=== PATIENT | female | born 1980 | race Caucasian/White ===

== ENCOUNTER 2020-06-29 15:26 | Outpatient (CLI) | payer OTHER, SELFPAY ==
--- NOTE | ~2020-06-29 | US_ITS ---
EXAMINATION: US OB <=14 wk fetus w TV DATE: 06/29/2020 16:07 INDICATION: Uncertain dating of first trimester . TECHNIQUE: Real-time pelvic ultrasound utilizing both a transvaginal and transabdominal probe was pe rformed. The interpreting radiologist was not present for the study. COMPARISON: None. FINDINGS: The uterus measures 9.8 x 6.3 x 8.0 cm. There is an intrauterine gestational sac. A yolk sac and fet al pole are identified. The crown rump length measures 1.7 cm, which correlates with an estimated ges tational age of 8 weeks and 0 days. heart motion is identified measuring 157 beats per minute ( bpm) by M-mode Doppler. The right ovary measures 2.0 x 2.2 x 2.2 cm. The left ovary measures 3.6 x 2.1 x 2.3 cm. There is no free fluid in the pelvis. IMPRESSION: 1. Single living fetus with heart of 157 bpm. 2. Gestational age by ultrasound of 8 weeks 0 day(s) +/- 5 day(s) with ultrasound estimated date of delivery (DICK) of 02/08/2021. Reviewed, dictated and finalized at location A. CELL OPERATOR IMPRESSION: 1. Single living fetus with heart of 157 bpm. 2. Gestational age by ultrasound of 8 weeks 0 day(s) +/- 5 day(s) with ultraso und estimated date of delivery (DICK) of 02/08/2021.
== END 2020-06-29 15:27 | disposition home or self-care (01) ==
PROVIDERS: Visit Provider Obstetrics & Gynecology Gynecology
DX: Z36.87 Encounter for antenatal screening for uncertain dates (principal); Z3A.08 8 weeks gestation of pregnancy
CPT/HCPCS: 76801; 76817

== ENCOUNTER 2020-09-09 16:20 | Outpatient (CLI) | payer OTHER, SELFPAY ==
--- NOTE | ~2020-09-09 | US_ITS ---
EXAMINATION: US OB /maternal detail DATE: 09/09/2020 17:19 INDICATION: anatomic survey. TECHNIQUE: Real-time ultrasound of the pelvis was performed. COMPARISON: Ultrasound 06/29/2020 FINDINGS: There is a single living fetus in vertex presentation. The placenta is posterior, 5.4 cm from the ce rvix. heart rate is 161 beats per minute (bpm). The amniotic fluid volume is subjectively lisa l. The following biometric data were obtained: Biparietal diameter (BPD): 4.2 cm; head circumference (HC): 16.6 cm; abdominal circumference (AC): 13 .8 cm; femur length (FL): 2.9 cm. These measurements are concordant. Estimated weight is 275 g +/- 41 g, which correlates with 90th percentile when 02/08/21 is used as estimated date of delivery. As single measurements, these parameters are each equal to the following estimated gestational ages: BPD: 18 weeks 4 days. HC: 19 weeks 2 days. AC: 19 weeks 1 days. FL: 19 weeks 0 days. estimated gestational age based solely on measurements from this exam is 19 weeks 0 days +/- 1 weeks 2 days. The cerebral ventricles, cerebellum, cisterna magna, nuchal fold, and visualized portions of the spin e are normal. The heart is suboptimally visualized, but is normal. The diaphragm, stomach, kidneys, a nd bladder are normal. There are two umbilical arteries to yield a 3-vessel cord. The cord insertion is normal. IMPRESSION: 1. Single living fetus in vertex presentation. 2. Estimated weight is 275 g +/- 41 g, which correlates with 90th percentile when 02/08/21 is u sed as estimated date of delivery. This date was set by ultrasound on 06/29/2020. 3. Normal anatomic survey. Reviewed, dictated and finalized at location A. IMPRESSION: 1. Single living fetus in vertex presentation. 2. Estimated weight is 275 g +/- 41 g, which correlates with 90th percen tile when 02/08/21 is used as estimated date of delivery. This date was set by theresa de oliveira on 06/29/2020. 3. Normal anatomic survey.
== END 2020-09-09 16:21 | disposition home or self-care (01) ==
PROVIDERS: Visit Provider Obstetrics & Gynecology Gynecology
DX: Z36.9 Encounter for antenatal screening, unspecified (principal); Z3A.19 19 weeks gestation of pregnancy
CPT/HCPCS: 76805

== ENCOUNTER 2021-02-02 16:59 | Inpatient (IN) | payer OTHER, SELFPAY ==
[2021-02-02] VITALS (16 sets, daily range): BP systolic 114–129; BP diastolic 69–94; PULSE 79–103; RESP 18; TEMP 36.8–36.9; BMI 44.9
--- NOTE | 2021-02-02 18:34 | LDADM ---
This patient, Hilary Griffin, was admitted to Labor/Delivery/Recovery 109 on 02/02/21 at 16:59. Plans for labor, pain management and were discussed with patient. Patient/family oriented to hospital policies and general routines including ID bracelet, bed and alarms, visiting hours, pain management, procedures, bathroom and other care routines, personal items, smoking policy, room service/diet and guest tray routines, infant security routines, and visiting hours. Patient/Family are encouraged to report perceived risks to care and to ask questions if they do not understand what they are told or what they should do. See OBIX for further documentation.
[2021-02-02 18:50] LABS: Basophils Percent Auto 0.3 % (0.2-1.2); Eosinophils Absolute Auto 0.1 K/mm3 (0-0.3); Eosinophils Percent Auto 0.4 % (0-4.4); Hemoglobin 11.1 g/dL (12.0-15.0); Immature Granulocyte Absolute 0.03 K/mm3 (0.00-0.031); Immature Granulocyte Percent A 0.3 % (0-0.5); Lymphocytes Absolute Auto 1.93 K/mm3 (0.9-3.2); Lymphocytes Percent Auto 16.8 % (18.3-44.2); Mean Corpuscular HGB Conc 31.7 g/dl (32-36); Mean Corpuscular Hemoglobin 27.5 pg (26-34); Mean Corpuscular Volume 86.8 fl (80-100); Mean Platelet Volume 10.1 fl (7.4-10.4); Monocytes Percent Auto 8.2 % (2.6-8.5); Neutrophils Absolute Auto 8.5 K/mm3 (1.3-6.7); Platelet Count Result 305 k/mm3 (150-375); Red Blood Count 4.03 M/mm3 (4.2-5.4); Red Cell Distribution Width 14.3 % (11.5-14.5); White Blood Count 11.5 K/mm3 (4.5-10.0)
[2021-02-02] MEDS: DINOPROSTONE 10 MG VAG INSERT VAGINAL (18:59)
[2021-02-03] VITALS (41 sets, daily range): BP systolic 113–146; BP diastolic 56–100; PULSE 70–112; RESP 18; TEMP 36.4–37.1; O2SAT 97–98
--- NOTE | 2021-02-03 06:11 | WPDANESEPP ---
Anes - Eval Pre Procedure Procedure: labor epidural Date/Time: 02/03/21 06:11 Surgeon: alonso Pre Op Diagnosis: iol Patient Data Age: 40 Gender: F Height: 1.68 m Weight: 126.4 kg Last Vital Signs Temp 37.0 C 02/03/21 03:02 Pulse 71 02/03/21 03:02 Resp 18 02/03/21 03:02 BP 133/74 02/03/21 03:02 Allergies Allergy/AdvReac Type Severity Reaction Status Date / Time No Known Allergies Allergy Unknown Verified 05/26/09 06:39 Home Medications Medication Instructions Recorded Confirmed Type aspirin 81 mg PO DAILY 01/10/21 02/02/21 History cetirizine [Zyrtec] 10 mg PO DAILY 01/10/21 02/02/21 History vit no.480-qcgm-ocxvl 1 tablet PO DAILY 01/10/21 02/02/21 History [Classic ] Laboratory Tests 02/02/21 02/02/21 02/02/21 18:40 18:40 18:40 WBC 11.5 K/mm3 H K/mm3 (4.5-10.0) RBC 4.03 M/mm3 L M/mm3 (4.2-5.4) Hgb 11.1 g/dL L g/dL (12.0-15.0) Hct 35.0 % L % (37.0-47.0) MCV 86.8 fl fl (80-100) MCH 27.5 pg pg (26-34) MCHC 31.7 g/dl L g/dl (32-36) RDW 14.3 % % (11.5-14.5) Plt Count 305 k/mm3 k/mm3 (150-375) MPV 10.1 fl fl (7.4-10.4) Immature Gran % (Auto) 0.3 % % (0-0.5) Neut % (Auto) 74.0 % H % (45.5-73.1) Lymph % (Auto) 16.8 % L % (18.3-44.2) [place] % (Auto) 8.2 % % (2.6-8.5) Eos % (Auto) 0.4 % % (0-4.4) Baso % (Auto) 0.3 % % (0.2-1.2) Lymph # (Auto) 1.93 K/mm3 K/mm3 (0.9-3.2) [place] # (Auto) 1.0 K/mm3 H K/mm3 (0.1-0.6) Eos # (Auto) 0.1 K/mm3 K/mm3 (0-0.3) Baso # (Auto) 0.0 K/mm3 K/mm3 (0.0-0.1) Abs Immat Gran (auto) 0.03 K/mm3 K/mm3 (0.00-0.031) Absolute Neuts (auto) 8.5 K/mm3 H K/mm3 (1.3-6.7) Absolute Nucleated RBC 0.0 K/mm3 K/mm3 (0.0-0.012) Nucleated RBC % 0.0 % % (0.0-0.2) RPR Pending Blood Type A Positive Antibody Screen Negative Patient hx anesthesia problems: none Family hx anesthesia problems: none [facility] Family History Family History (Updated 01/10/21 @ 15:51 by Tamar Griffin RN) Mother Hypertension Social History Social History Smoking packs per day: 1 Smoking cigarettes per day: 20.0 Years smoked: 10 Smoking pack-years: 10.00 Smoking status: Former smoker Tobacco type: cigarettes Second hand tobacco smoke exposure: Yes Substance use: never Gender identity (if verbalized by the patient): Female Spiritual care concerns: No Exam Day of Procedure 02/03/21 06:11
--- NOTE | 2021-02-03 07:51 | WPDOBADMIT ---
Obstetrics - Admit Note Admission Note: record reviewed. No pertinent additions to the history and/or any subsequent changes in the physical findings that are not consistent with the expected course of the were found. Additions to the history and/or subsequent changes in the physical findings follow. Here for MIL at 39 wks. Cervadil last pm now cervix 1-250/-2 AROM with clear Fluid. Start pitocin. FHTs reactive
[2021-02-03] MEDS: OXYTOCIN 30 UNITS/NS 500 ML 30 UNITS/500 ML BAG IV CONT (08:58)
[2021-02-03 09:20] LABS: Rapid Plasma Reagin Non-Reactive (NonReactive)
[2021-02-03] MEDS: fentaNYL CITRATE INJ (*CRX) 100 MCG/2 ML VIAL IV PUSH (14:15)
--- NOTE | 2021-02-03 15:23 | PM.OBPRVD ---
OB - Delivery Note Procedure Delivery date: 02/03/21 Procedure: events: Labor Induction Intrapartal events: None Induction method: AROM, per pitocin protocol and per cervidil protocol Delivery monitor: external FHT and external uterine Route of delivery: Laceration Description: Perineal - 1st Degree Delivery repair: vicryl (3-0 vicryl) Specimen: No Quantitative Blood Loss (ml): 75 Anesthesia type: None Disposition: floor Baby Date of : 02/03/21 Weeks of gestation at delivery: 39 gender: Female Weight (pounds): 8 Weight (ounces): 7 presentation: vertex position: Right Occiput Anterior Placenta delivery description: Spontaneous cord vessel description: 3 Vessels score one minute: 8 score five minutes: 9
--- NOTE | 2021-02-03 15:24 | P.DS_ITS ---
DS: Admitting Diagnosis Admitting Diagnosis IUP 39 wk DS: Discharge Diagnosis Discharge Diagnosis (1) 39 weeks gestation of : Code(s): Z3A.39 - 39 weeks gestation of Status: Acute (2) (normal spontaneous vaginal delivery): Code(s): O80 - Encounter for full-term uncomplicated delivery Status: Acute OB - DS: Summary OB Procedures : Ultrasound OB Procedures Intrapartum: Spontaneous Vag Delivery OB Procedures: : None Peripartum Data Delivery Method: Natural Vaginal Laceration Description: Perineal - 1st Degree complications: none Status at Discharge Functional status at discharge: independent ambulation Overall status at discharge: patient is progressing back to baseline Time Spent with Patient Time attestation: Total time spent providing and/or coordinating discharge services: DS: Data Data Completed and Pending Labs on day of discharge: Labs from last 24 hours 02/02/21 02/02/21 02/02/21 18:40 18:40 18:40 WBC 11.5 H RBC 4.03 L Hgb 11.1 L Hct 35.0 L MCV 86.8 MCH 27.5 MCHC 31.7 L RDW 14.3 Plt Count 305 MPV 10.1 Immature Gran % (Auto) 0.3 Neut % (Auto) 74.0 H Lymph % (Auto) 16.8 L [place] % (Auto) 8.2 Eos % (Auto) 0.4 Baso % (Auto) 0.3 Lymph # (Auto) 1.93 [place] # (Auto) 1.0 H Eos # (Auto) 0.1 Baso # (Auto) 0.0 Abs Immat Gran (auto) 0.03 Absolute Neuts (auto) 8.5 H Absolute Nucleated RBC 0.0 Nucleated RBC % 0.0 RPR Non-reactive Blood Type A Positive Antibody Screen Negative Discharge Plan Discharge Attending physician on discharge: Maty Rodriguez Discharging Clinician: Maty Rodriguez Anticipated Discharge Date/Time: 02/05/21 15:25 Patient Disposition: Home, Self-Care Activity: may shower and pelvic rest Diet: regular Patient Instructions: Antibiotic Form Stand Alone Forms: General Discharge Information Follow-up/Referrals: Maty Rodriguez MD [Physician] - 6 Weeks Discharge Medications: New norethindrone (contraceptive) 0.35 mg tablet 0.35 mg PO DAILY Qty: 84 RF: 3 Continued Classic 28 mg iron- 800 mcg Tablet 1 tablet PO DAILY RF: 0 Discontinued Zyrtec 10 mg Capsule 10 mg PO DAILY RF: 0 aspirin 81 mg Capsule 81 mg PO DAILY RF: 0 Date of admission: 02/02/21 16:59 Primary Care Provider: PHYSICIAN,TRANSMISSION LINE ENGINEER Admitting Provider: Maty Rodriguez Attending physician on admission: Maty Rodriguez Condition: Stable
[2021-02-03] MEDS: OXYTOCIN 30 UNITS/NS 500 ML 30 UNITS/500 ML BAG 125 UNITS IV CONT (15:47)
[2021-02-03] MEDS: IBUPROFEN 600 MG TABLET PO ×2 (16:09→23:11)
[2021-02-03] MEDS: WITCH HAZEL 40 PADS 1 PAD TOPICAL (17:55)
[2021-02-03] MEDS: BENZOCAINE 20% AER SPR (*SP) 56 GM CAN 1 SPRAY TOPICAL (17:55)
--- NOTE | 2021-02-03 18:25 | OBPPTRN ---
Patient transferred to post room #284 via wheelchair with baby in bassinet. Support person present. Oriented to unit, room, information board, rooming in, admission packet and security measures. Patient verbalizes understanding.
[2021-02-04 04:00] VITALS: BP 120/67; PULSE 59; RESP 16; TEMP 36.2; O2SAT 99
[2021-02-04 07:03] LABS: Hematocrit 31.9 % (37.0-47.0); Hemoglobin 10.3 g/dL (12.0-15.0)
--- NOTE | 2021-02-04 07:49 | PM.OBPNVD ---
OB - PN: Subj Subjective Date/time seen: 02/04/21 07:49 Patient comments: no complaints and pain well controlled baby status: doing well OB - PN: Obj Data Labs CBC & Chem 7: 02/04/21 06:48 Labs: Laboratory Results - last 24 hr 02/02/21 02/04/21 18:40 06:48 Hgb 10.3 L Hct 31.9 L RPR Non-reactive OB - PN A/P Plan day: 1 Plan: routine care Time Spent With Patient Time: Total time spent is greater than 50% in coordination of care (as documented) at patient's floor/unit and/or counseling patient: Exam : Bimanual exam- vagina & uterus: other (Uterus firm, nt @U)
[2021-02-04 07:50] VITALS: BP 126/72; PULSE 72; RESP 16; TEMP 36.6; O2SAT 99
[2021-02-04] MEDS: IBUPROFEN 600 MG TABLET PO ×2 (08:13→21:50)
[2021-02-04] MEDS: DOCUSATE SODIUM 100 MG CAPSULE PO (08:14)
[2021-02-04] MEDS: MULTIVIT/MIN/PREN/FOL AC/IRON TABLET 1 TAB PO (08:14)
[2021-02-04 08:20] VITALS: PULSE 72; RESP 16; O2SAT 99
--- NOTE | 2021-02-04 08:55 | PC.NURSE ---
Mother called out for assist with feeding, reporting this to be 5th child to breastfeed last child is 13 years old. Mother voices concerns infant is spitty up. Reviewed this is normal for the first few days and demonstrated bulb syringe use. Advised mother to call out for assist as needed. is able to freely thrust tongue past gum ridge and flange both lips. Skin is intact on both nipples, no redness and bruising noted. Reviewed feeding cues, frequencies, duration of feedings, feeding elimination flow sheet, and signs of adequate intake. Demonstrated stimulation techniques to wake for feeding. Assisted with infant to breast. Reviewed positioning/alignment in cross cradle, holding breast in ?U? hold and guided asymmetrical latch on. Discussed rational for each. able to latch correctly. Reviewed signs of a correct latch, effective nursing and suck swallow ratio. Infant nursed eagerly, with steady draws and frequent swallowing noted. would pull back during feeding and then have long pausing. Reviewed the difference of effective vs ineffective nursing. Suggested mother stimulate while feeding to increase stimulation, increase intake and to assist with maintaining deep latch. Infant would slip to shallow latch, mother reports tenderness. Demonstrated how to adjust latch more deeply while feeding. Mother reports she can feel change in latch and has no tenderness. Nipple care reviewed of lanolin after feedings, warm compresses as needed.
[2021-02-04 12:15] VITALS: BP 124/79; PULSE 77; RESP 16; TEMP 36.4; O2SAT 99
[2021-02-04 20:55] VITALS: BP 128/75; PULSE 82; RESP 16; RESP 18; TEMP 36.9; O2SAT 98
[2021-02-05 08:30] VITALS: BP 122/78; PULSE 71; RESP 20; TEMP 36.4
--- NOTE | 2021-02-05 08:30 | PC.NURSE ---
Patient instructed to view the discharge video Mother & Baby Care, The First Two Weeks . Patient was given the opportunity and encouraged to ask questions. Patient verbalized understanding of information shared and has been given the mother/baby guide for home reference.
[2021-02-05] MEDS: MULTIVIT/MIN/PREN/FOL AC/IRON TABLET 1 TAB PO (08:32)
[2021-02-05] MEDS: DOCUSATE SODIUM 100 MG CAPSULE PO (08:32)
[2021-02-05] MEDS: IBUPROFEN 600 MG TABLET PO (08:32)
--- NOTE | 2021-02-05 11:11 | PM.OBPNVD ---
OB - PN: Subj Subjective Date/time seen: 02/05/21 11:11 Patient comments: no complaints and pain well controlled baby status: doing well and nursing well OB - PN: Obj Data Labs CBC & Chem 7: 02/04/21 06:48 OB - PN A/P Plan day: 2 Plan: routine care, discharge home, follow up 6 weeks and other (micronor until vasectomy) Time Spent With Patient Time: Total time spent is greater than 50% in coordination of care (as documented) at patient's floor/unit and/or counseling patient: Exam : Bimanual exam- vagina & uterus: other (Uterus firm, nt @U)
[2021-02-07 10:37] VITALS: BP 137/73; PULSE 82; RESP 20; TEMP 36.8; O2SAT 100
== END 2021-02-05 13:37 | disposition home or self-care (01) | DRG 560 ==
LOC: ANHLDR 02-03 15:25 → ANHOB2 02-03 18:48
PROVIDERS: Admitting Provider Obstetrics & Gynecology Gynecology; Visit Provider Obstetrics & Gynecology Gynecology
DX: O76 Abnormality in fetal heart rate and rhythm complicating labor and delivery (principal); O70.0 First degree perineal laceration during delivery; Z3A.39 39 weeks gestation of pregnancy; Z37.0 Single live birth
CPT/HCPCS: 36415; 85014; 85018; 85025; 86592; 86850; 86900; 86901; A9270; J2590; J3010

== ENCOUNTER 2023-08-10 15:45 | Outpatient (RCR) | payer OTHER, SELFPAY | END 2023-11-08 23:59 | disposition home or self-care (01) | LOC: ANHOBOP 15:45 | PROVIDERS: Visit Provider Obstetrics & Gynecology | DX: O30.003 Twin pregnancy, unspecified number of placenta and unspecified number of amniotic sacs, third trimester (principal); Z3A.34 34 weeks gestation of pregnancy | CPT/HCPCS: 59025 ==

== ENCOUNTER 2023-08-15 20:21 | Inpatient (IN) | payer OTHER, SELFPAY ==
[2023-08-15] VITALS (48 sets, daily range): BP systolic 48–158; BP diastolic 36–98; PULSE 84–154; TEMP 36.1; O2SAT 76–100; BMI 47.7
[2023-08-15] MEDS: LACTATED RINGERS 1,000 ML 125 ML IV CONT ×2 (21:00→22:24)
--- NOTE | 2023-08-15 21:10 | P.PNAN_ITS ---
Anes - Eval Pre Procedure Procedure: labor epidural Date/Time: 08/15/23 21:10 Pre Op Diagnosis: Leaking Patient Data Age: 42 Gender: F Height: Weight: Last Vital Signs Pulse 106 H 08/15/23 20:59 BP 120/66 08/15/23 20:59 Allergies Allergy/AdvReac Type Severity Reaction Status Date / Time No Known Allergies Allergy Unknown Verified 05/26/09 06:39 Home Medications Medication Instructions Recorded Confirmed Type vits no.126-ferrous fum 1 tablet PO DAILY 01/10/21 02/02/21 History 28 mg iron-folic acid 800 mcg tablet (Classic ) norethindrone (contraceptive) 0.35 0.35 mg PO DAILY #84 tabs 02/05/21 Rx mg tablet Patient hx anesthesia problems: none Family hx anesthesia problems: none Results Review: All pre-operative results and documents have been reviewed as part of the pre- operative evaluation. FORMERLY [facility], [facility] Past Medical History Medical History (Updated 08/15/23 @ 21:13 by Maia Campo CRNA) Gestational hypertension Morbid obesity Family History Family History Mother Hypertension Social History Social History Smoking packs per day: 1 Smoking cigarettes per day: 20.0 Years smoked: 10 Smoking pack-years: 10.00 Smoking status: Former smoker Tobacco type: cigarettes Second hand tobacco smoke exposure: Yes Substance use: never Gender identity (if verbalized by the patient): Female Spiritual care concerns: No Exam Day of Procedure 08/15/23 21:10 Patient weight: morbidly obese Heart: regular rate and rhythm Lungs: normal air movement Airway: Mallampati scale Neurological: alert and oriented
[2023-08-15 21:15] LABS: Basophils Percent Auto 0.2 % (0.2-1.2); Eosinophils Absolute Auto 0.1 K/mm3 (0-0.3); Eosinophils Percent Auto 0.5 % (0-4.4); Hematocrit 34.7 % (37.0-47.0); Hemoglobin 11.3 g/dL (12.0-15.0); Immature Granulocyte Percent A 0.8 % (0-0.5); Lymphocytes Absolute Auto 2.63 K/mm3 (0.9-3.2); Lymphocytes Percent Auto 20.5 % (18.3-44.2); Mean Corpuscular HGB Conc 32.6 g/dl (32-36); Mean Corpuscular Hemoglobin 28.9 pg (26-34); Mean Corpuscular Volume 88.7 fl (80-100); Mean Platelet Volume 10.5 fl (7.4-10.4); Monocytes Percent Auto 8.1 % (2.6-8.5); Neutrophils Percent Auto 69.9 % (45.5-73.1); Platelet Count Result 294 k/mm3 (150-375); Red Blood Count 3.91 M/mm3 (4.2-5.4); Red Cell Distribution Width 13.4 % (11.5-14.5); White Blood Count 12.8 K/mm3 (4.5-10.0)
--- NOTE | 2023-08-15 21:23 | PM.IMHP ---
H&P: HPI History of Present Illness Date/Time: 08/15/23 21:23 Chief Complaint: pt arrived to at 34.5 weeks gestation, mono/di twins, complicated by obesity, gestational hypertension, AMA. on arrival CNM did bedside US and vertex/vertex presentation. FHR category 1, contractions every 1-3 minutes. pt has been counseled on vaginal delivery by Dr. Spears at her office visit and would like to proceed. Dr. Humphrey irrigation engineer and notified. If section pt requesting tubal ligation PMF Past Medical History Medical History (Updated 08/15/23 @ 21:29 by Isa Cotton CNM) Gestational hypertension Morbid obesity Family History Family History Mother Hypertension Social History Social History Smoking packs per day: 1 Smoking cigarettes per day: 20.0 Years smoked: 10 Smoking pack-years: 10.00 Smoking status: Never smoker Tobacco type: cigarettes Second hand tobacco smoke exposure: No Substance use: never Do You Feel Safe in your Home?: Yes Lack of Transportation: No Lack of Food: Never True Current Housing: I Have Housing Concerned About Future Housing: No Difficulty Paying Gas/Electric Bills: No Difficulty Paying for Meds: No Currently Unemployed: No Education: High School Diploma/GED Difficulty w/ Childcare or Family Care: No Gender identity (if verbalized by the patient): Female Spiritual care concerns: No Meds Home Medications and Allergies Home Medications Medication Instructions Recorded Confirmed Type vits no.126-ferrous fum 1 tablet PO DAILY 01/10/21 08/15/23 History 28 mg iron-folic acid 800 mcg tablet (Classic ) Allergies Allergy/AdvReac Type Severity Reaction Status Date / Time No Known Allergies Allergy Unknown Verified 05/26/09 06:39 Vital Signs Vital Signs - 24 hr 08/15/23 20:59 08/15/23 21:16 08/15/23 21:04 Pulse Rate 106 H 119 H Blood Pressure 120/66 119/63 Oxygen Delivery Room Air Exam Const: General: cooperative and healthy appearing Chest: Chest palpation & inspection: normal inspection of the chest Resp: Effort & Inspection: normal respiratory effort GI: Other: gravid Back/Spine/Pelvis: Back: no CVA tenderness Skin: General skin exam: normal color Neuro: General: patient oriented x3 Extrem: Right lower extremity: edema Details: non-pitting Left lower extremity: edema Details: non-pitting Psych: Appearance: grossly normal H&P: Results Labs Labs: Short CBC 08/15/23 Range/Units 21:10 WBC 12.8 H (4.5-10.0) K/mm3 Hgb 11.3 L (12.0-15.0) g/dL Hct 34.7 L (37.0-47.0) % Plt Count 294 (150-375) k/mm3 Assessment and Plan Assessment and plan (1) Monochorionic diamniotic twin in third trimester: Code(s): O30.033 - Twin , monochorionic/diamniotic, third trimester Status: Acute (2) Obesity: Code(s): E66.9 - Obesity, unspecified Status: Acute (3) Advanced maternal age (AMA) in : Status: Acute Plan proceed with delivery
[2023-08-15] MEDS: AMPICILLIN 2 GM/NS 100 ML 2 GM/100 ML BAG IVPB (21:30)
[2023-08-15] MEDS: ONDANSETRON INJ 4 MG/2 ML VIAL IV PUSH (22:24)
[2023-08-15] MEDS: OXYTOCIN 30 UNITS/NS 500 ML 30 UNITS/500 ML BAG IV CONT (23:30)
[2023-08-16] VITALS (25 sets, daily range): BP systolic 114–131; BP diastolic 60–85; PULSE 58–136; RESP 16–18; TEMP 36.4–36.9; O2SAT 86–100
--- NOTE | 2023-08-16 01:00 | P.PCNOB_ITS ---
OB - Vaginal Delivery Note Procedure Delivery date: 08/15/23 Events: Gestational Hypertension and Other (mono/di twins, obesity) Induction method: None Delivery augmentation: Pitocin Delivery monitor: External FHT and External Uterine Route of delivery: Episiotomy description: None Laceration Description: None Specimen: Yes Quantitative Blood Loss (ml): 300 Anesthesia type: Epidural Disposition: Floor Complications: No immediate complications Baby Date of : 08/15/23 Time of : 23:39 Weeks of gestation at delivery: 34 gender: Female Weight (pounds): 5 Weight (ounces): 13 presentation: vertex position: Left Occiput Anterior Placenta delivery description: Spontaneous Cord Vessel Description: 3 Vessels score one minute: 8 score five minutes: 8 Narrative: baby A to warmer, aix administrator at , Pitocin started for augmentation Twins 2: Date of : 08/16/23 Time of : 00:39 Weeks of gestation at delivery: 35 Infant gender: Female Weight (pounds): 5 Weight (ounces): 9 presentation: vertex position: Other (OP) Placental delivery description: Expressed Cord Vessel Description: 3 Vessels score one minute: 1 score five minutes: 7 score ten minutes: 7 Narrative: baby immediately to warmer for evaluation Dr. Humphrey present for both deliveries
[2023-08-16] MEDS: OXYTOCIN 30 UNITS/NS 500 ML 30 UNITS/500 ML BAG 125 UNITS IV CONT (01:19)
[2023-08-16] MEDS: IBUPROFEN 600 MG TABLET PO ×3 (03:08→18:52)
[2023-08-16] MEDS: BENZOCAINE 20% AER SPR (*SP) 56 GM CAN 1 SPRAY TOPICAL (03:09)
[2023-08-16] MEDS: WITCH HAZEL 40 PADS 1 PAD TOPICAL (03:09)
--- NOTE | 2023-08-16 03:22 | OBPPTRN ---
Patient transferred to post room #277 via wheelchair. Support person present. Oriented to unit, room, information board, rooming in, admission packet and security measures. Patient verbalizes understanding.
[2023-08-16] MEDS: POLYSACCHARIDE IRON COMPLEX 150 MG CAPSULE PO ×2 (08:47→18:52)
[2023-08-16] MEDS: MULTIVIT/MIN/PREN/FOL AC/IRON TABLET 1 TAB PO (08:47)
[2023-08-16] MEDS: DOCUSATE SODIUM 100 MG CAPSULE PO ×2 (08:53→18:52)
--- NOTE | 2023-08-16 08:57 | WPDANLDPN2 ---
Anes-Prog Note L&D Date/Time: 08/16/23 08:57 Neuro status: Neuro function grossly intact. Cardiovascular status: normal Respiratory status: normal Airway patency: baseline Mental status: baseline Post-Op hydration status: normal Vital Signs: Last Vital Signs Temp 36.6 C 08/16/23 07:20 Pulse 80 08/16/23 07:20 Resp 18 08/16/23 07:20 BP 117/63 08/16/23 07:20 Pulse Ox 98 08/16/23 07:20 O2 Del Method Room Air 08/15/23 21:04 Pain score (VAS): 0 I/O: Intake & Output 08/15/23 08/16/23 08/16/23 23:59 07:59 15:59 Intake Total 1000 Output Total 300 Balance 1000 -300 Post-procedural complaints: none Patient feedback: Patient satisfied with anesthetic care.
--- NOTE | 2023-08-16 09:03 | PM.OBPNVD ---
OB - PN: Subj Subjective Date/time seen: 08/16/23 09:03 Patient comments: no complaints, pain well controlled, incisional pain, tolerating diet and flatus present OB - PN: Obj Data Labs 08/15/23 21:10 Labs: Laboratory Results - last 24 hr 08/15/23 21:10 WBC 12.8 H RBC 3.91 L Hgb 11.3 L Hct 34.7 L MCV 88.7 MCH 28.9 MCHC 32.6 RDW 13.4 Plt Count 294 MPV 10.5 H Immature Gran % (Auto) 0.8 H Neut % (Auto) 69.9 Lymph % (Auto) 20.5 [place] % (Auto) 8.1 Eos % (Auto) 0.5 Baso % (Auto) 0.2 Lymph # (Auto) 2.63 [place] # (Auto) 1.0 H Eos # (Auto) 0.1 Baso # (Auto) 0.0 Abs Immat Gran (auto) 0.10 H Absolute Neuts (auto) 9.0 H Absolute Nucleated RBC 0.0 Nucleated RBC % 0.0 Blood Type A Positive Antibody Screen Negative OB - PN A/P Plan day: 1 Plan: routine care Comments: No problems, routine care Time Spent With Patient Time: Total time spent is greater than 50% in coordination of care (as documented) at patient's floor/unit and/or counseling patient: Exam Const: General: comfortable, no acute distress and alert Resp: Effort & Inspection: normal respiratory effort Auscultation: no crackles, no rales and no rhonchi Cardio: Rate: regular rate Heart sounds: no click, no murmurs and no rubs GI: Inspection: non-distended GI Palp: No Tenderness to palpation present (GI) Auscultation: normal bowel sounds Other: Incision - CDI Extrem: General: normal to inspection, no pedal edema and no calf tenderness
[2023-08-16 11:12] LABS: Rapid Plasma Reagin Non-Reactive (NonReactive)
--- NOTE | 2023-08-16 15:05 | PC.NURSE ---
[id number] Introductions were made, then consulted with patient to assess needs related to . Discussed with mother her?plans to feed?her infants, the?experience so far along with her previous baby for 16 months. Twins born at 34 6/7 & 35 weeks has presented more of a challenge with for mother. Mother shared she has been able to latch baby girl A ( no pain with exception to cramping) but not baby girl B. She is rarely pumping, however; without pain. Both infants are being supplemented with formula bottles. Suggested hand expression, consistent milk removal with pumping, infant or hand removal to protect the milk supply. RN LC offered demonstration of hand expression and patient is distracted with visitors at this time. Resources provided for inpatient and outpatient services with the mom/baby guide and name written on the communication board. Mother voiced understanding of information and will call if there is a request for assistance.
[2023-08-17 04:35] VITALS: BP 117/75; PULSE 82
[2023-08-17 06:49] LABS: Hematocrit 34.2 % (37.0-47.0); Hemoglobin 10.5 g/dL (12.0-15.0)
[2023-08-17 07:00] VITALS: BP 136/77; PULSE 86; RESP 16; TEMP 36.6; O2SAT 96
[2023-08-17] MEDS: MULTIVIT/MIN/PREN/FOL AC/IRON TABLET 1 TAB PO (07:02)
[2023-08-17] MEDS: IBUPROFEN 600 MG TABLET PO ×2 (07:04→19:57)
--- NOTE | 2023-08-17 07:49 | PM.OBPNVD ---
OB - PN: Subj Subjective Date/time seen: 08/17/23 07:49 Interval history: pp day 1 pumping/ babies doing well OB - PN: Obj Data Labs 08/17/23 06:33 Labs: Laboratory Results - last 24 hr 08/15/23 08/17/23 21:10 06:33 Hgb 10.5 L Hct 34.2 L RPR Non-reactive OB - PN A/P Plan day: 1 Plan: routine care Time Spent With Patient Time: Total time spent is greater than 50% in coordination of care (as documented) at patient's floor/unit and/or counseling patient: Review of Systems Review of Systems: All systems reviewed & are unremarkable except as noted in HPI and below Exam Const: General: cooperative Chest: Chest palpation & inspection: normal inspection of the chest Resp: Effort & Inspection: normal respiratory effort GI: Inspection: normal to inspection Skin: General skin exam: normal color Neuro: General: patient oriented x3 Extrem: Right lower extremity: normal to inspection Left lower extremity: normal to inspection Psych: Appearance: grossly normal
[2023-08-17 12:22] VITALS: BP 128/76
[2023-08-17 17:00] VITALS: BP 130/77
[2023-08-17 19:48] VITALS: BP 116/79; PULSE 100; RESP 16; TEMP 36.9; O2SAT 96
[2023-08-17 23:50] VITALS: BP 121/78; PULSE 79; RESP 16; TEMP 36.6; O2SAT 98
[2023-08-18 07:48] VITALS: BP 147/82; PULSE 77; RESP 20; TEMP 36.7; O2SAT 99
[2023-08-18] MEDS: IBUPROFEN 600 MG TABLET PO ×2 (08:25→16:22)
[2023-08-18] MEDS: MULTIVIT/MIN/PREN/FOL AC/IRON TABLET 1 TAB PO (08:25)
[2023-08-18] MEDS: LANOLIN (LANSINOH) 7.5 GM CREAM 1 APPLIC TOPICAL (08:26)
--- NOTE | 2023-08-18 09:17 | PM.OBPNVD ---
OB - PN: Subj Subjective Date/time seen: 08/18/23 09:17 Interval history: pp day 1 pumping/ babies doing well Patient comments: no complaints, pain well controlled and tolerating diet OB - PN: Obj Data Labs 08/17/23 06:33 OB - PN A/P Plan day: 2 Plan: routine care and discharge home Time Spent With Patient Time: Total time spent is greater than 50% in coordination of care (as documented) at patient's floor/unit and/or counseling patient: Exam Const: General: comfortable and no acute distress Resp: Effort & Inspection: normal respiratory effort Auscultation: no rales, no rhonchi and no wheezes Cardio: Rate: regular rate Heart sounds: no click, no murmurs and no rubs GI: GI Palp: Yes Soft to palpation and No Tenderness to palpation present (GI) Auscultation: normal bowel sounds Extrem: General: normal to inspection, no pedal edema and no calf tenderness
--- NOTE | 2023-08-18 09:18 | P.DS_ITS ---
DS: Admitting Diagnosis Discharge Date August 18, 2023 Admitting Diagnosis twin DS: Discharge Diagnosis Discharge Diagnosis (1) Twin delivered: Code(s): O30.009 - Twin , unspecified number of placenta and unspecified number of amniotic sacs, unspecified trimester Status: Acute OB - DS: Summary OB Procedures : None OB Procedures Intrapartum: Spontaneous Vag Delivery OB Procedures: : None Peripartum Data Laceration Description: None Episiotomy description: None Time Spent with Patient Time attestation: Total time spent providing and/or coordinating discharge services: DS: Data Data Completed and Pending Pending studies at discharge: Pending at discharge 08/15/23 00:45 Surgical [PTH] Routine Discharge Plan Discharge Discharging Clinician: Fransisco Humphrey Patient Disposition: Home, Self-Care Activity: pelvic rest Diet: regular Patient Instructions: Antibiotic Form Stand Alone Forms: General Discharge Information Follow-up/Referrals: Fransisco Humphrey MD [Physician] - Discharge Medications: Continued Classic 28 mg iron- 800 mcg Tablet 1 tablet PO DAILY Date of admission: 08/15/23 20:21 Primary Care Provider: 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
[2023-08-18 15:44] VITALS: BP 124/70
[2023-08-18] MEDS: WITCH HAZEL 40 PADS 1 PAD TOPICAL (16:22)
[2023-08-20 08:42] VITALS: BP 129/71; PULSE 71; RESP 18; TEMP 36.5; O2SAT 99
== END 2023-08-18 16:30 | disposition home or self-care (01) | DRG 560 ==
LOC: ANHOB2 08-18 15:59 → ANHLDR 08-20 12:17 → ANHOB2 08-20 12:17
PROVIDERS: Advanced Practice Midwife; Admitting Provider Obstetrics & Gynecology; Visit Provider Obstetrics & Gynecology
DX: O30.043 Twin pregnancy, dichorionic/diamniotic, third trimester (principal); Z3A.34 34 weeks gestation of pregnancy; Z37.2 Twins, both liveborn; O13.4 Gestational [pregnancy-induced] hypertension without significant proteinuria, complicating childbirth; O99.214 Obesity complicating childbirth; O60.14X1 Preterm labor third trimester with preterm delivery third trimester, fetus 1; O60.14X2 Preterm labor third trimester with preterm delivery third trimester, fetus 2; E66.01 Morbid (severe) obesity due to excess calories
CPT/HCPCS: 36415; 85014; 85018; 85025; 86592; 86850; 86900; 86901; 88307; A9270; J0290; J2405; J2590; J2795; J7120

== ENCOUNTER 2023-11-11 14:24 | Emergency (ER) | payer OTHER, SELFPAY ==
--- NOTE | ~2023-11-11 | XR_ITS ---
EXAMINATION: XR hand LT min 3V DATE: 11/11/2023 15:10 INDICATION: Left hand fifth digit injury and pain. TECHNIQUE: 3 views of left hand were obtained. COMPARISON: None. FINDINGS: There is an oblique fracture of neck of fifth metacarpal. The distal fracture fragment demo nstrates near-anatomic alignment. Joint spaces are normal. IMPRESSION: 1. Oblique fracture of neck of fifth metacarpal. Reviewed, dictated and finalized at location E.
[2023-11-11 14:36] VITALS: BP 153/85; PULSE 81; RESP 16; TEMP 36.6; O2SAT 100
--- NOTE | 2023-11-11 14:53 | ED.GENADULT ---
HPI - General Adult General Chief complaint: Extremity Injury, Upper Stated complaint: L HAND INJURY Time Seen by Provider: 11/11/23 14:53 Source: patient Mode of arrival: ambulatory Limitations: no limitations History of Present Illness HPI narrative: 43-year-old female patient presents to [facility] with complaints of left hand injury. Patient states yesterday she was standing on a Chick kitchen chair trying to hang a ironer or presser and she fell off of the chair went to go and braced her fall with her bilateral hands and thinks that she jammed her left pinky finger but is having pain to the left hand. Patient states she did ice it a lot yesterday and did take some ibuprofen yesterday. Related Data Home Medications Medication Instructions Recorded Confirmed vits no.126-ferrous fum 1 tablet PO DAILY 01/10/21 08/15/23 28 mg iron-folic acid 800 mcg tablet (Classic ) Allergies Allergy/AdvReac Type Severity Reaction Status Date / Time No Known Allergies Allergy Unknown Verified 05/26/09 06:39 Review of Systems Review of Systems: CONSTITUTIONAL: Denies fever, chills, or sweats. EYES: Denies visual changes, redness, or discharge. ENT: Denies rhinorrhea, congestion, sore throat, or otalgia. CARDIOVASCULAR: Denies chest pain, palpitations, or edema. RESPIRATORY: Denies cough or dyspnea. GASTROINTESTINAL: Denies abdominal pain, nausea, vomiting, or diarrhea. GENITOURINARY: Denies dysuria or hematuria. SKIN: Denies rash or itching. MUSCULOSKELETAL: Denies back pain, joint pain, or myalgia. positive left hand pain NEUROLOGIC: Denies headache, numbness, or weakness. PSYCHIATRIC: Denies anxiety or depression. [facility] Past Medical History Medical History Gestational hypertension Morbid obesity Family History Family History Mother Hypertension Social History Social History Smoking packs per day: 1 Smoking cigarettes per day: 20.0 Years smoked: 10 Smoking pack-years: 10.00 Smoking status: Never smoker Tobacco type: cigarettes Second hand tobacco smoke exposure: No Substance use: never Do You Feel Safe in your Home?: Yes Lack of Transportation: No Lack of Food: Never True Current Housing: I Have Housing Concerned About Future Housing: No Difficulty Paying Gas/Electric Bills: No Difficulty Paying for Meds: No Currently Unemployed: No Education: High School Diploma/GED Difficulty w/ Childcare or Family Care: No Gender identity (if verbalized by the patient): Female Spiritual care concerns: No Comments At the time of my signature I agree with nursing past medical history, surgical, social, and family history. There is no relevant family history pertinent to the presenting complaint. Exam Narrative: GENERAL: Well-appearing, well-nourished, and in no acute distress. HEAD: Normocephalic, atraumatic. EYES: PERRLA and EOMI. ENT: Nares clear, no rhinorrhea or epistaxis. Mucous membranes moist. NECK: Supple. No lymphadenopathy CHEST: Clear to auscultation. No respiratory distress. HEART: Regular rate and rhythm. No murmur heard. Normal peripheral pulses. ABDOMEN: Soft, nontender, nondistended, normal active bowel sounds. EXTREMITIES: The L hand is without obvious asymmetry or deformity when compared to the R hand. slight swelling noted to the medial side of the left hand along the 5th metacarpal, noerythema, atrophy, or obvious deformity. No surface trauma, open wounds, nail avulsion, tissue avulsion, partial or complete amputation, subungual hematoma, bony deformity. Normal cascade of fingers. Normal flexion and extension of fingers. FDS and FDP intact aganist restistance. No focal fullness, thobbing pain, swelling of fingertip. tenderness to palpation over the MIP joints and along the 5th metacarpal. P
== END 2023-11-11 16:00 | disposition home or self-care (01) ==
PROVIDERS: Emergency Provider Nurse Practitioner Family; PCP Family Medicine
DX: S62.367A Nondisplaced fracture of neck of fifth metacarpal bone, left hand, initial encounter for closed fracture (principal); W07.XXXA Fall from chair, initial encounter; E66.01 Morbid (severe) obesity due to excess calories; Z68.41 Body mass index [BMI] 40.0-44.9, adult; F17.210 Nicotine dependence, cigarettes, uncomplicated
CPT/HCPCS: 29125; 73130; 99214; A4565; G0463

== ENCOUNTER 2024-05-15 14:59 | Emergency (ER) | payer OTHER, SELFPAY ==
--- NOTE | 2024-05-15 15:08 | ED.URI ---
HPI - URI/Sore Throat General Chief Complaint: Upper Respiratory Infection Stated Complaint: Congestion Time Seen by Provider: 05/15/24 15:10 Source: patient, RN notes reviewed and old records reviewed Mode of arrival: ambulatory Limitations: no limitations History of Present Illness HPI Narrative: 43-year-old female to [facility] for complaint of sinus drainage for 2 months, a productive cough for 1 week; voice hoarseness since this morning. Patient denies fever, pain, shortness of breath, difficulty swallowing, allergies. Patient able to tolerate fluids by mouth. Respirations even nonlabored. Patient resting in exam room in no acute distress. Related Data Home Medications ?Medication ?Instructions ?Recorded ?Confirmed ?Last Taken ?Type norethindrone (contraceptive) 0.35 0.35 mg PO DAILY 05/15/24 05/15/24 Unknown History mg tablet Allergies Allergy/AdvReac Type Severity Reaction Status Date / Time No Known Allergies Allergy Unknown Verified 05/15/24 15:10 Review of Systems Review of Systems: All systems reviewed & are unremarkable except as noted in HPI and below Constitutional: Constitutional: Reports no additional constitutional complaints Eyes: Eyes: Reports no additional eye complaints ENT: Reports as per HPI, Reports hoarseness, Reports nasal discharge, Reports post nasal drip and Reports sinus pressure Cardiovascular: Cardiovascular: Reports no additional cardiovascular complaints, Denies chest pain and Denies dyspnea Respiratory: Respiratory: Reports no additional respiratory complaints, Reports change in phlegm color, Reports cough and Denies dyspnea Musculoskeletal: Musculoskeletal: Reports no additional musculoskeletal complaints Neurologic: Reports system reviewed and no additional complaints, except as documented Psychiatric: Psychiatric: Reports no additional psychiatric complaints [facility] Past Medical History Medical History Gestational hypertension Morbid obesity Family History Family History (Updated 12/31/23 @ 14:51 by JAMAAL Mendes) Mother Hypertension Sibling Hypertension Social History Social History (Updated 12/31/23 @ 14:52 by JAMAAL Mendes) Smoking packs per day: 1 Smoking cigarettes per day: 20.0 Years smoked: 10 Smoking pack-years: 10.00 Smoking status: Former smoker Tobacco type: cigarettes Second hand tobacco smoke exposure: No Alcohol intake: never Substance use: never Substance use type: does not use Do You Feel Safe in your Home?: Yes Lack of Transportation: No Lack of Food: Never True Current Housing: I Have Housing Concerned About Future Housing: No Difficulty Paying Gas/Electric Bills: No Difficulty Paying for Meds: No Currently Unemployed: No Education: High School Diploma/GED Difficulty w/ Childcare or Family Care: No Living arrangements: with family Occupation/Education: occupation 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 There is no relevant family history pertinent to the patient complaint. Exam Const: General: cooperative, no acute distress, alert, tired appearing, uncomfortable and well nourished Nutritional Appearance: well nourished Orientation/consciousness: patient oriented x3 Limitations: no limitations HENMT: Head: normal to inspection Ears: external ears normal and TM abnormal with fluid behind the TM bilateral Face/Nose/Sinus: Normal external nose present, Abnormal mucous membranes and turbinates present boggy and erythematous, normal facial exam, No erythema and No edema Face and sinus: normal facial exam, no erythema, no edema and sinus tenderness Mouth: Yes Normal oral and palatal mucosa present Throat: uvula midline and postnasal drainage ( Purulent) Eyes: General: appearance normal, both eyes and all related structures Neck: Neck: normal visual inspection, full ROM and no meningeal signs Lymphatic: no lymphadenopathy noted and no lymphedema noted Chest: Chest palpation & inspection: normal inspection of the chest Resp: Effort & Inspection: normal respiratory effort and able to speak in complete sentences Auscultation: clear to auscultation bilaterally Cardio: Jugular venous distension: no JVD Rate: regular rate Rhythm: regular rhythm Back/Spine/Pelvis: Cervical Spine: cervical ROM normal Skin: General skin exam: normal color, no rashes or lesions noted and turgor normal Neuro: General: patient oriented x3, gait normal, moves all extremities and no meningeal signs Speech: normal speech Gait exam (Neuro): Normal gait present Extrem: General: normal to inspection, full ROM and capillary refill normal Psych: Appearance: grossly normal and well kempt Course Course Emergency Course: Some parts of this dictation were generated by voice recognition software and may contain typographical and/or grammatical inaccuracies. Level of Care: Express Care Visit Vital Signs Vital signs: Vital Signs Temperature 36.4 C 05/15/24 15:09 Pulse Rate 86 05/15/24 15:09 Respiratory Rate 16 05/15/24 15:09 Blood Pressure 160/90 H 05/15/24 15:09 Pulse Oximetry 100 05/15/24 15:09 Temperature 36.4 C 05/15/24 15:12 Pulse Rate 86 05/15/24 15:12 Respiratory Rate 16 05/15/24 15:12 Blood Pressure 160/90 H 05/15/24 15:12 Pulse Oximetry 100 05/15/24 15:12 reviewed MDM - URI/Sore Throat MDM Narrative Medical decision making narrative: 43-year-old female to [facility] for complaint of sinus drainage for 2 months, a productive cough for 1 week; voice hoarseness since this morning. Patient denies fever, pain, shortness of breath, difficulty swallowing, allergies. Patient able to tolerate fluids by mouth. Respirations even nonlabored. Patient resting in exam room in no acute distress. on exam, bilateral TMs with purulent fluid, posterior oropharynx with postnasal drainage. Bilateral nares boggy and erythematous. Sinus tenderness. Findings consistent with bacterial sinusitis. Patient is sitting comfortably in exam room nontoxic in appearance. Patient appropriate for outpatient treatment and follow-up. Discharge instructions reviewed with patient, as well as provided in writing per nursing staff. The instructions also include specific and strict return/GO TO THE ER as well as f/u information. All questions have been answered, and the patient deny any further questions with discharge and discharge plan. Some parts of this dictation were generated by voice recognition software and may contain typographical and/or grammatical inaccuracies. Differential Diagnosis Differential diagnosis: Likely upper respiratory infection, croup, otitis media, sinusitis, viral infection, bronchitis, influenza and pharyngitis Discharge Plan Discharge Clinical Impression: Bacterial sinusitis Patient Disposition: Home, Self-Care Condition: Stable Instructions: Sinusitis (ED) Additional Instructions: -Alternate Tylenol and Motrin per package directions for fever or pain. -Antihistamine medication such as Benadryl at night and Zyrtec/Claritin/Sara during the day can help improve symptoms. -Use Flonase twice a day for 5 days then daily to help reduce the inflammation and dry up your sinuses. -You can also use Sudafed or Mucinex. Be sure to drink plenty of water with these medications at least 8 ounces with every dose and it is important to drink 8 to 10 glasses of water per day. Water is a natural decongestant -Eat and drink things that are easy to swallow, like tea or soup, or popsicles. -Oral rinses such as: Salt water gargles and/or may use topical anesthetic (eg. Chloraseptic spray) or lozenges to relieve dryness or throat pain). -Frequent hand washing or hand senior analysis specialist is one of the best ways to prevent spread of infection. -Using a vaporizer or humidifier at night will also help thin secretions and help with coughing up phlegm. -Follow up with primary care provider in 2-3 days if condition is not improving; or seek ER visit if you have trouble breathing, cannot drink enough fluids, have muffled voice, difficulty opening your mouth, or severe swelling. Patient Language: [place] Prescriptions: New amoxicillin 875 mg tablet 875 mg PO Q12H Qty: 20 0RF No Action norethindrone (contraceptive) 0.35 mg tablet 0.35 mg PO DAILY Follow-up/Referrals: UNKNOWN,DOCTOR [Primary Care Provider] -
[2024-05-15 15:09] VITALS: BP 160/90; PULSE 86; RESP 16; TEMP 36.4; O2SAT 100
[2024-05-15 15:12] VITALS: BP 160/90; PULSE 86; RESP 16; TEMP 36.4; O2SAT 100
== END 2024-05-15 15:22 | disposition home or self-care (01) ==
PROVIDERS: Emergency Provider Nurse Practitioner Family
DX: J32.9 Chronic sinusitis, unspecified (principal); E66.01 Morbid (severe) obesity due to excess calories; Z68.41 Body mass index [BMI] 40.0-44.9, adult; Z87.891 Personal history of nicotine dependence
CPT/HCPCS: 99213; G0463

== ENCOUNTER 2024-08-01 16:23 | Emergency (ER) | payer OTHER, SELFPAY ==
[2024-08-01 16:33] VITALS: BP 114/65; PULSE 87; RESP 16; TEMP 36.6; O2SAT 100
--- NOTE | 2024-08-01 17:52 | ED.GENADULT ---
HPI - General Adult General Chief complaint: Upper Respiratory Infection Stated complaint: Sinus Infection Symptoms Source: patient Mode of arrival: ambulatory Limitations: no limitations History of Present Illness HPI narrative: Patient presents for evaluation of sinus symptoms for last few weeks. She initially had sinus congestion and clear rhinorrhea. She now has thick green discharge. She has pressure behind her eyes and in her maxillary sinuses. She has had sinusitis in the past and this feels similar. She has responded favorably to antibiotics in the past. She denies any fever, chills, nausea, vomiting, cough, shortness of breath. Today she lost her sense of taste. She is taking [id number] allergy medicine. She is not taking any medications for her symptoms. She does not smoke. Related Data Home Medications ?Medication ?Instructions ?Recorded ?Confirmed ?Last Taken ?Type norethindrone (contraceptive) 0.35 0.35 mg PO DAILY 05/15/24 08/01/24 Unknown History mg tablet Allergies Allergy/AdvReac Type Severity Reaction Status Date / Time No Known Allergies Allergy Unknown Verified 08/01/24 16:30 Review of Systems Review of Systems: CONSTITUTIONAL: Denies fever, chills, or sweats. EYES: Denies visual changes, redness, or discharge. ENT: Reports sinus congestion, thick green nasal discharge, pressure behind her eyes and in her maxillary sinus regions. Reports loss of sense of taste CARDIOVASCULAR: Denies chest pain, palpitations, or edema. RESPIRATORY: Denies cough or dyspnea. GASTROINTESTINAL: Denies abdominal pain, nausea, vomiting, or diarrhea. GENITOURINARY: Denies dysuria or hematuria. SKIN: Denies rash or itching. MUSCULOSKELETAL: Denies back pain, joint pain, or myalgia. NEUROLOGIC: Denies headache, numbness, dizziness, or weakness. PSYCHIATRIC: Denies anxiety or depression. [facility] Past Medical History Medical History Gestational hypertension Morbid obesity Surgical History Surgical History No pertinent past surgical history Family History Family History Mother Hypertension Sibling Hypertension Social History Social History Smoking packs per day: 1 Smoking cigarettes per day: 20.0 Years smoked: 10 Smoking pack-years: 10.00 Smoking status: Former smoker Tobacco type: cigarettes Second hand tobacco smoke exposure: No Alcohol intake: never Substance use: never Substance use type: does not use Do You Feel Safe in your Home?: Yes Lack of Transportation: No Lack of Food: Never True Current Housing: I Have Housing Concerned About Future Housing: No Difficulty Paying Gas/Electric Bills: No Difficulty Paying for Meds: No Currently Unemployed: No Education: High School Diploma/GED Difficulty w/ Childcare or Family Care: No Living arrangements: with family Occupation/Education: occupation 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 HEAD: Normocephalic, atraumatic. EYES: PERRLA and EOMI. ENT: Nares clear, no rhinorrhea or epistaxis. Mucous membranes moist. Bilateral maxillary sinus tenderness. Oropharynx without tonsillar hypertrophy exudate or other lesions. Bilateral TMs pearly freitas nonbulging NECK: Supple. No adenopathy or masses. No carotid bruits or JVD CHEST: Clear to auscultation. No respiratory distress. No wheezes rales or rhonchi HEART: Regular rate and rhythm. No murmur heard. Normal peripheral pulses. ABDOMEN: Soft, nontender, nondistended, normal active bowel sounds. EXTREMITIES: Normal range of motion. No edema. SKIN: Warm, dry, no rash. NEURO: No focal deficits. Alert and oriented x3. PSYCH: Normal mood and affect. Course Course Emergency Course: This is a 43-year-old female who presented for evaluation of sinus symptoms. She meets criteria for bacterial sinusitis. Will dc with augmentin. COVID here negative. Increase hydration. OTC agents for symptom management. Follow up with primary provider. Go to the ER for worsening symptoms. Pt in agreement with plan of care. Level of Care: Express Care Visit Vital Signs Vital signs: Vital Signs Temperature 36.6 C 08/01/24 16:33 Pulse Rate 87 08/01/24 16:33 Respiratory Rate 16 08/01/24 16:33 Blood Pressure 114/65 08/01/24 16:33 Pulse Oximetry 100 08/01/24 16:33 Temperature 36.6 C 08/01/24 16:33 Pulse Rate 87 08/01/24 16:33 Respiratory Rate 16 08/01/24 16:33 Blood Pressure 114/65 08/01/24 16:33 Pulse Oximetry 100 08/01/24 16:33 Medical Decision Making Vital Signs Vital Signs: Vital Signs Temperature 36.6 C 08/01/24 16:33 Pulse Rate 87 08/01/24 16:33 Respiratory Rate 16 08/01/24 16:33 Blood Pressure 114/65 08/01/24 16:33 Pulse Oximetry 100 08/01/24 16:33 Temperature 36.6 C 08/01/24 16:33 Pulse Rate 87 08/01/24 16:33 Respiratory Rate 16 08/01/24 16:33 Blood Pressure 114/65 08/01/24 16:33 Pulse Oximetry 100 08/01/24 16:33 Lab Data Labs: Lab Results 08/01/24 Range/Units 18:10 POC SARS CoV-2 Ag Negative (Negative) Discharge Plan Discharge Clinical Impression: Sinusitis Patient Disposition: Home, Self-Care Condition: Stable Instructions: Antibiotic Form, Sinusitis (ED) Patient Language: [place]ian Prescriptions: New amoxicillin-pot clavulanate 875-125 mg tablet 1 tablet PO Q12H Qty: 20 0RF No Action norethindrone (contraceptive) 0.35 mg tablet 0.35 mg PO DAILY Follow-up/Referrals: Lissette Lindsey DO [Physician] - Time of Disposition: 18:22
[2024-08-01 18:11] LABS: EDCOVIDSCREEN Negative (Negative)
== END 2024-08-01 18:35 | disposition home or self-care (01) ==
PROVIDERS: Emergency Provider Nurse Practitioner
DX: J32.9 Chronic sinusitis, unspecified (principal); Z20.822 Contact with and (suspected) exposure to COVID-19
CPT/HCPCS: 87426; 99213; G0463

== ENCOUNTER 2024-08-30 19:42 | Emergency (ER) | payer OTHER, SELFPAY ==
--- NOTE | 2024-08-30 19:45 | ED.GENADULT ---
HPI - General Adult General Chief complaint: Upper Respiratory Infection Stated complaint: SINUS DRAINAGE/LOSING VOICE Time Seen by Provider: 08/30/24 19:45 Source: patient Mode of arrival: ambulatory Limitations: no limitations History of Present Illness HPI narrative: 43-year-old female patient presents to the [facility] with complaints of runny nose, congestion, a cough and losing her voice. Patient states symptoms started about 2 days ago. Denies fevers, body aches or chills. Denies abdominal pain, nausea, vomiting or diarrhea. Patient denies chest pain or shortness breath. Patient states that she was treated for sinus infection last month. Patient states that she has been taking some [id number] Zyrtec as needed. Denies any Tylenol Motrin or any other [id number]-[id number] medications for symptoms Related Data Home Medications ?Medication ?Instructions ?Recorded ?Confirmed ?Last Taken ?Type norethindrone (contraceptive) 0.35 0.35 mg PO DAILY 05/15/24 08/30/24 Unknown History mg tablet Allergies Allergy/AdvReac Type Severity Reaction Status Date / Time No Known Allergies Allergy Unknown Verified 08/30/24 19:49 Review of Systems Review of Systems: CONSTITUTIONAL: Denies fever, chills, or sweats. EYES: Denies visual changes, redness, or discharge. ENT: positive rhinorrhea, congestion, sore throat, denies otalgia. CARDIOVASCULAR: Denies chest pain, palpitations, or edema. RESPIRATORY: positive cough denies dyspnea. GASTROINTESTINAL: Denies abdominal pain, nausea, vomiting, or diarrhea. GENITOURINARY: Denies dysuria or hematuria. SKIN: Denies rash or itching. MUSCULOSKELETAL: Denies back pain, joint pain, or myalgia. NEUROLOGIC: Denies headache, numbness, or weakness. PSYCHIATRIC: Denies anxiety or depression. [facility] Past Medical History Medical History Gestational hypertension Morbid obesity Surgical History Surgical History No pertinent past surgical history Family History Family History Mother Hypertension Sibling Hypertension Social History Social History Smoking packs per day: 1 Smoking cigarettes per day: 20.0 Years smoked: 10 Smoking pack-years: 10.00 Smoking status: Former smoker Tobacco type: cigarettes Second hand tobacco smoke exposure: No Alcohol intake: never Substance use: never Substance use type: does not use Do You Feel Safe in your Home?: Yes Lack of Transportation: No Lack of Food: Never True Current Housing: I Have Housing Concerned About Future Housing: No Difficulty Paying Gas/Electric Bills: No Difficulty Paying for Meds: No Currently Unemployed: No Education: High School Diploma/GED Difficulty w/ Childcare or Family Care: No Living arrangements: with family Occupation/Education: occupation 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 There is no relevant family history pertinent to the presenting complaint. Exam Narrative: GENERAL: Well-appearing, well-nourished, and in no acute distress. HEAD: Normocephalic, atraumatic. EYES: PERRLA and EOMI. ENT: Nares with erythema edema noted bilaterally, no rhinorrhea or epistaxis. Mucous membranes moist. posterior pharynx with no erythema, tonsillar enlargement, exudates or lesions present. Bilateral TMs are clear no erythema foreign bodies the canal. NECK: Supple. No lymphadenopathy CHEST: Clear to auscultation. No respiratory distress. HEART: Regular rate and rhythm. No murmur heard. Normal peripheral pulses. ABDOMEN: Soft, nontender, nondistended, normal active bowel sounds. EXTREMITIES: Normal range of motion. No edema. SKIN: Warm, dry, no rash. NEURO: No focal deficits. Alert and oriented x3. Course Course Level of Care: Express Care Visit Vital Signs Vital signs: Vital Signs Temperature 36.7 C 08/30/24 19:53 Pulse Rate 84 08/30/24 19:53 Respiratory Rate 16 08/30/24 19:53 Blood Pressure 195/76 H 08/30/24 19:53 Pulse Oximetry 100 08/30/24 19:53 Temperature 36.7 C 08/30/24 19:53 Pulse Rate 84 08/30/24 19:53 Respiratory Rate 16 08/30/24 19:53 Blood Pressure 195/76 H 03/22/25 19:53 Pulse Oximetry 100 08/30/24 19:53 Vital signs reviewed. Medical Decision Making MDM Narrative Medical decision making narrative: Discussed with patient we will go ahead and swab her today for influenza and COVID. Discussed with her that if these are negative this is most likely possible seasonal allergies or virus. Patient can continue treating her symptoms with jvsk-rbj-owyjkig medications including warm salt water gargles hot tea and honey to help with the throat voice. Patient verbalized understanding denies any other questions or concerns at this time. Differential Diagnosis Differential Diagnosis: Differential diagnosis: Allergic rhinitis, chronic sinusitis, tonsillitis, acute sinusitis, infectious mononucleosis, seasonal influenza, pertussis, diphtheria, meningococcal disease, viral syndrome, viral bronchitis, RSV, COVID-19 Vital Signs Vital Signs: Vital Signs Temperature 36.7 C 08/30/24 19:53 Pulse Rate 84 08/30/24 19:53 Respiratory Rate 16 08/30/24 19:53 Blood Pressure 195/76 H 08/30/24 19:53 Pulse Oximetry 100 08/30/24 19:53 Temperature 36.7 C 08/30/24 19:53 Pulse Rate 84 08/30/24 19:53 Respiratory Rate 16 08/30/24 19:53 Blood Pressure 195/76 H 08/30/24 19:53 Pulse Oximetry 100 08/30/24 19:53 Critical Care Time Critical Care Time Critical Care Time: No Discharge Plan Discharge Clinical Impression: Viral URI with cough Patient Disposition: Home, Self-Care Condition: Stable Instructions: Antibiotic Form, Viral Syndrome (ED) Additional Instructions: Viral illness may last between 7-12days; antibiotic is NOT recommended at this time. Recommend antihistamine such as Benadryl at night time and Claritin/Zyrtec/Sara during the day Cough syrup may cause drowsiness; avoid driving or take it at night time. Also, recommend symptomatic treatment includes: rest, fluids, and increase humidity of the air at home. Recommend Acetaminophen or nonsteroidal anti-inflammatory agents (NSAIDs) as directed in the bottle to reduce fever and/pain/headache. Avoid smoking/second-hand smoke. Limit visits to areas with large crowds. Please schedule a follow-up visit with your personal physician for further evaluation and treatment within 3-5days. Including recheck and discussion of your blood pressure. If your symptoms persist, change or worsen significantly before you can contact your personal physician then please, without delay, go to the emergency department for further evaluation. Patient Language: Divehi Prescriptions: No Action norethindrone (contraceptive) 0.35 mg tablet 0.35 mg PO DAILY Follow-up/Referrals: PHYSICIAN,[employer] [employer] [Primary Care Provider] - Time of Disposition: 20:05
[2024-08-30 19:53] VITALS: BP 195/76; PULSE 84; RESP 16; TEMP 36.7; O2SAT 100
[2024-08-30 20:06] LABS: EDCOVIDSCREEN Negative (Negative); EDINFLUASCREEN Negative (Negative); EDINFLUBSCREEN Negative (Negative)
== END 2024-08-30 20:07 | disposition home or self-care (01) ==
PROVIDERS: Emergency Provider Nurse Practitioner Family
DX: J06.9 Acute upper respiratory infection, unspecified (principal); B97.89 Other viral agents as the cause of diseases classified elsewhere; Z87.891 Personal history of nicotine dependence; Z20.822 Contact with and (suspected) exposure to COVID-19
CPT/HCPCS: 87426; 87804; 99212; G0463